=== PATIENT | female | born 1950 | race African-American/Black ===

== ENCOUNTER 2020-03-19 22:02 | Emergency (ER) | payer MEDICARE, MEDICAID ==
[~2020-03-19] VITALS: Ht 170.2 cm; Wt 127.0 kg
[2020-03-19] MEDS ORDERED: Morphine Sulfate 4mg/ml Inj (IV USE ONLY) IVP ONE (22:15)
--- NOTE | 2020-03-19 22:20 | NUR ---
ED Nurse Note: Recieved pt KENYETTA from [facility] with c/o SOB, pt has hx of COPD on O2, pt arrived with NRB mask and o2 sat=96%, was informed sat low at 87 when arrived, pt is awake and alert, oriented to name and place only, pt has periods of confusion asking where is she, sob noted at rest, pt immediately placed on monitoring, IV lines placed and labs drawn also, pt c/o having opain to left lower ext where dressing is, pt also c/o pain in mid abdomen / upper chest, pt is moaning and grasping site, rates pain at 8, MD informed immediately, will resume care as ordered and continue to closely monitor.
--- NOTE | 2020-03-19 22:30 | Emergency Room Report ---
History of Present Illness General Chief Complaint: Dyspnea/Respdistress Source: Patient, Medical Record Present Illness HPI This is a 69-year-old female from the [facility]. She has a history of COVID infection in October. She also has a history of COPD and on oxygen, diabetes, seiz ure, hypertension and CVA. He presents with chief complaint of shortness of breath and hypoxia. According to EMS, oxygenation was 87 to 91%. Patient complained of short of breath also. Also complaining of leg pain. No noted fever or chills. No cough or congestion. She is limited because of her condition. Allergies: Coded Allergies: NUHA INHIBITORS (Unverified Allergy, Unknown, 03/19/20) CEFTRIAXONE (Unverified Allergy, Unknown, 03/19/20) EZETIMIBE (Unverified Allergy, Unknown, 03/19/20) FENOFIBRATE (Unverified Allergy, Unknown, 03/19/20) MELOXICAM (Unverified Allergy, Unknown, 03/19/20) METOLAZONE (Unverified Allergy, Unknown, 03/19/20) NSAIDS (NON-STEROIDAL ANTI-INFLAMMA (Unverified Allergy, Unknown, 03/19/20) PENICILLINS (Unverified Allergy, Unknown, 03/19/20) KACBKTT-[id number]-MOV REDUCTASE INHIBITOR (Unverified Allergy, Unknown, 03/19/20) Uncoded Allergies: ENZYME INHIBITORS (Allergy, Unknown, 03/19/20) COVID-19 Screening Contact w/high risk pt: Yes Experienced COVID-19 symptoms?: No COVID-19 Testing performed CERTIFIED CODER: Yes - [facility] COVID-19 Screening: PUI COVID-19 COVID-19 Testing Source: [facility] unk time Patient History Past Medical History: see triage record, old chart reviewed, DM, HTN, COPD Past Surgical History: other Pertinent Family History: none Social History: Denies: smoking Now: No Immunizations: other Reviewed Nursing Documentation: PMH: Agreed; PSxH: Agreed Review of Systems Eye: Denies: eye pain, blurred vision ENT: Denies: ear pain, nose congestion, throat swelling Respiratory: Reports: cough, shortness of breath Cardiovascular: Denies: chest pain, palpitations Gastrointestinal: Denies: abdominal pain, diarrhea, nausea, vomiting Musculoskeletal: Denies: back pain, joint pain Skin: Denies: rash Neurological: Denies: headache, numbness Endocrine: Denies: increased thirst, increased urine Hematologic/Lymphatic: Denies: easy bruising All Other Systems: negative except mentioned in HPI Physical Exam Vital Signs Date Time Temp Pulse Resp B/P (MAP) Pulse Ox O2 Delivery O2 Flow Rate FiO2 03/19/20 21:59 97.9 85 18 119/69 (86) 93 Non-Rebreather Vitals with hypoxia Sp02 EP Interpretation: abnormal General Appearance: alert, mild distress, Chronically Ill Head: normocephalic, atraumatic Eyes: bilateral eye PERRL, bilateral eye EOMI ENT: hearing grossly normal, normal pharynx Neck: full range of motion, supple, no meningismus Respiratory: chest non-tender, decreased breath sounds, accessory muscle use Cardiovascular #1: regular rate, rhythm, no murmur Gastrointestinal: normal bowel sounds, non tender, no mass, no organomegaly, no bruit, non-distended Musculoskeletal: back normal, normal range of motion, tender - Diffuse tenderness Psychiatric: mood/affect normal Procedures Critical Care Time Critical Care Time critical care is mandated in this patient who presented with acute on chronic respiratory failure secondary to CHF and pneumonia. Patient require my urgent intervention to attenuate the risks of metabolic collapse which may lead to cardiovascular collapse and . Critical care time is 35 minutes excluding any reportable procedure. Critical care time included evaluation, multiple reevaluation, looking at old charts, interpreting laboratory and diagnostic data, discussing case with patient and family and consultants, and charting. Medical Decision Making Diagnostic Impression: Primary Impression: Acute exacerbation of CHF (congestive heart failure) Qualified Codes: I50.9 - Heart failure, unspecified Additional Impressions: HCAP (healthcare-associated pneumonia) Respiratory failure with hypoxia Qualified Codes: J96.21 - Acute and chronic respiratory failure with hypoxia UTI (urinary tract infection) Qualified Codes: N30.00 - Acute cystitis without hematuria ACS (acute coronary syndrome) ER Course This patient presents with acute on chronic respiratory failure. This may be a combination of CHF and pneumonia. I held off on giving patient fluids because of her CHF. COVID is negative. Patient received aspirin and Lovenox here because of intermediate troponin. This may be troponin leak secondary to CHF. No evidence of ST elevation [place]. I discussed the case with Dr. Marsh, [facility]. He accepted patient for transfer. Case #[id number]. EKG Diagnostic Results Rate: normal Rhythm: NSR ST Segments: other - NSST changes ASA given to the pt in ED: Yes Rhythm Strip Diag. Results EP Interpretation: yes Rate: 84 Rhythm: NSR, no PVC's, no ectopy Chest X-Ray Diagnostic Results Chest X-Ray Diagnostic Results : Chest X-Ray Ordered: Yes # of Views/Limited/Complete: 1 View Indication: Shortness of Breath EP Interpretation: Yes Interpretation: no pneumothorax, other - Cardiomegaly, CHF, left pleural effusion versus infiltrate. Impression: Other - Left pleural effusion versus infiltrate Electronically Signed by: Tim De Luna MD Last Vital Signs Date Time Temp Pulse Resp B/P (MAP) Pulse Ox O2 Delivery O2 Flow Rate FiO2 03/19/20 21:59 97.9 85 18 119/69 (86) 93 Non-Rebreather Status: improved Disposition: SHORT-TERM HOSP Condition: Stable Tim De Luna MD Mar 19, 2020 22:30
[2020-03-19] MEDS ORDERED: ACETAMINOPHEN500 M5 ORAL (22:36)
[2020-03-19] MEDS ORDERED: CHOLECALCIFEROL1 G1 MC (22:37)
[2020-03-19] MEDS ORDERED: COMBIVENT RESPIM4 GM IH (22:38)
[2020-03-19] MEDS ORDERED: NEURONTIN300 MG ORAL (22:40)
[2020-03-19] MEDS ORDERED: FLORASTOR250 MG ORAL (22:40)
[2020-03-19] MEDS ORDERED: GUAIFENESI100 MG/5 M ORAL (22:41)
[2020-03-19] MEDS ORDERED: VISTARIL25 MG ORAL (22:42)
[2020-03-19] MEDS ORDERED: LEVETIRACETAM500 MG ORAL (22:43)
[2020-03-19] MEDS ORDERED: LIDODERM700 M1 TOPIC (22:44)
[2020-03-19] MEDS ORDERED: LOSARTAN POTASS50 MG ORAL (22:45)
[2020-03-19] MEDS ORDERED: Aztreonam Inj 1 GM in NS 55 ML IVPB ONE (22:45)
[2020-03-19] MEDS ORDERED: MELATONIN 3 MG1 EAC1 PO (22:46)
[2020-03-19] MEDS ORDERED: MIRALAX17 G2 ORAL (22:47)
[2020-03-19] MEDS ORDERED: MULTIVITAMINS1 EAC2 ORAL (22:48)
[2020-03-19] MEDS ORDERED: NORCO 10-325 T1 EACH ORAL (22:48)
[2020-03-19] MEDS ORDERED: NYSTATIN15 GM TOPIC (22:49)
--- NOTE | 2020-03-19 22:49 | Diagnostic Imaging Report ---
EXAM: XR Chest, 1 View CLINICAL HISTORY: SOB TECHNIQUE: Frontal view of the chest. COMPARISON: No previous studies. FINDINGS: Lungs: Prominence of central pulmonary vasculature. Pleural space: Moderate left pleural effusion appeared No pneumothorax. Heart: There is cardiomegaly. Mediastinum: Unremarkable. Bones/joints: Osteopenia. Other findings: The patient is slightly rotated right of midline. IMPRESSION: 1. Cardiomegaly. 2. Prominence of central pulmonary vascular. 3. Moderate left pleural effusion. 4. This constellation of findings is most compatible with congestive heart failure. 5. Clinical correlation is advised.
[2020-03-19] MEDS ORDERED: CRESTOR10 M2 ORAL (22:50)
[2020-03-19] MEDS ORDERED: SIMETHICONE80 MG ORAL (22:51)
[2020-03-19] MEDS ORDERED: TOPIRAMATE100 MG ORAL (22:51)
[2020-03-19] MEDS ORDERED: VITAMIN A & D454 GM TOP (22:53)
[2020-03-19 22:57] LABS: ANION GAP -1 mmol/L (5-15); BLOOD UREA NITROGEN 12 mg/dL (7-18); CALCIUM 9.1 MG/DL (8.5-10.1); CARBON DIOXIDE 36 MMOL/L (21-32); CHLORIDE 100 MMOL/L (98-107); CREATININE 0.6 MG/DL (0.55-1.30); SODIUM 135 MMOL/L (136-145)
[2020-03-19 23:00] VITALS: BP 129/76
[2020-03-19 23:13] LABS: ALANINE AMINOTRANSFERASE 9 U/L (12-78); ALBUMIN 2.7 G/DL (3.4-5.0); ALBUMIN/GLOBULIN RATIO 0.7 (1.0-2.7); ALKALINE PHOSPHATASE 72 U/L (46-116); ASPARTATE AMINO TRANSFERASE 21 U/L (15-37); BILIRUBIN,TOTAL 0.4 MG/DL (0.2-1.0); CREATINE KINASE 21 U/L (26-308); FERRITIN 149 NG/ML (8-388); LACTATE DEHYDROGENASE 243 U/L (81-234)
[2020-03-19 23:16] LABS: BASOPHILS % (AUTO) 0.8 % (0.0-2.0); EOSINOPHILS % (AUTO) 1.4 % (0.0-3.0); HEMATOCRIT 52.1 % (37.0-47.0); HEMOGLOBIN 14.7 G/DL (12.0-16.0); LYMPHOCYTES % (AUTO) 22.1 % (20.0-45.0); MEAN CORPUSCULAR VOLUME 94 FL (80-99); MONOCYTES % (AUTO) 7.9 % (1.0-10.0); NEUTROPHILS % (AUTO) 67.9 % (45.0-75.0); PLATELET COUNT 189 K/UL (150-450); RED BLOOD COUNT 5.56 M/UL (4.20-5.40); RED CELL DISTRIBUTION WIDTH 15.8 % (11.6-14.8); WHITE BLOOD COUNT 6.9 K/UL (4.8-10.8)
--- NOTE | 2020-03-19 23:35 | NUR ---
ED Nurse Note: Repeat troponin level drawn and sent, pt medicated as ordered, tolerating meds well, no s/s of adverse reaction noted, pt continues to have intermittent periods of c/o mid chest pain, pt medicated as ordered, remains on cardiac monitoring, assisted with repositioning, pt is morbid obese, pillows used for support, pt ahs severe constant tremor and shaking.
[2020-03-19] MEDS ORDERED: Aspirin Baby 81mg ORAL ONE (23:45)
[2020-03-19] MEDS ORDERED: Enoxaparin 120 mg inj SUBQ ONE (23:45)
[2020-03-19 23:57] LABS: APPEARANCE,URINE VERY CLOUDY; BILIRUBIN, URINE NEGATIVE (NEGATIVE); GLUCOSE, URINE (UA) NEGATIVE (NEGATIVE); KETONES,URINE NEGATIVE (NEGATIVE); LEUKOCYTE ESTERASE ,URINE 3+ (NEGATIVE); NITRITE,URINE POSITIVE (NEGATIVE); PH,URINE 6.5 (4.5-8.0); PROTEIN,URINE 2+ (NEGATIVE); UROBILINOGEN,URINE NORMAL MG/DL (0.0-1.0)
[2020-03-20] VITALS: BP 147/89
[2020-03-20 00:01] LABS: COLOR,URINE YELLOW
--- NOTE | 2020-03-20 00:39 | NUR ---
Scott ESPAÑA called back,speaking with .
[2020-03-20] MEDS ORDERED: Enoxaparin 60mg Inj SUBQ ONE (00:56)
[2020-03-20] MEDS ORDERED: Morphine Sulfate 4mg/ml Inj (IV USE ONLY) ONE (00:57)
[2020-03-20] MEDS ORDERED: Morphine Sulfate 4mg/ml Inj (IV USE ONLY) IVP ONE (01:15)
--- NOTE | 2020-03-20 01:56 | NUR ---
RT notified to do ABG @1103
[2020-03-20 02:00] VITALS: BP 123/96
--- NOTE | 2020-03-20 02:10 | NUR ---
ED Nurse Note: Pt medicated for pain, meds effective, pt states she feels better, resting quietly, oxygen changed to nasal cannula, sat=96%, tolerating well, ABG done, carvajal to gravity, lasix given effective, pt with output noted, pt repositioned and turned with pillows support, pt is to be transferred to [facility], waiting for transfer info, will continue to closely montior, no s/s of adverse reaction noted from IV antibiotics given also.
--- NOTE | 2020-03-20 02:56 | NUR ---
[facility] us [facility].
[2020-03-20 03:30] VITALS: BP 104/60
--- NOTE | 2020-03-20 03:45 | NUR ---
ED Nurse Note: Pt continues to rest quietly in bed, on cardiac monitoring, pt has been taken off NRB mask and on O2 3L n/c and tolerating well with sat of 99%, pt medicated for pain, meds effective, v/s stable, pt repositioned and turned, carvajal to gravity, urine output great after lasix, pt waiting for transfer info, will continue to monitor while waiting for information.
[2020-03-20 05:15] VITALS: BP 110/51
--- NOTE | 2020-03-20 06:01 | NUR ---
Spoke with Verito-patients sister-informed of patient being transferred to [facility], gave her phone number to call as well as room number at [place].
--- NOTE | 2020-03-20 06:13 | NUR ---
ED Nurse Note: Placed call to [facility] at [phone], report given to ASHLEE Chow, pt has ambulance ETA of 0700, pt family aware of transfer, pt also, pt continues to rest quietly on monitoring, IV site intact and patent, v/s stable, no sob or labored breathing noted, will continue to closely montior while waiting for transport.
[2020-03-20 07:00] VITALS: BP 101/50
--- NOTE | 2020-03-20 07:20 | NUR ---
HAND-OFF: Report given to Sonja Thacker RN.
[2020-03-20 07:55] VITALS: BP 116/52
--- NOTE | 2020-03-20 07:55 | NUR ---
ED Nurse Note: Pt was picked up by [facility] on stable condition; report was given to ASHLEE Chow from [place] by ASHLEE Casillas. All belongings was sent with pt, family was informed of transfer.
--- NOTE | 2020-03-21 14:44 | Cardiology Report ---
APPROVED REPORT EKG Measurement Heart [id number] <Conclusion> Normal sinus rhythm Possible Left atrial enlargement Right axis deviation ST & T wave abnormality, consider anterior ischemia Abnormal ECG
--- NOTE | 2020-03-24 04:55 | Emergency Room Report ---
Physical Exam Vital Signs Date Time Temp Pulse Resp B/P (MAP) Pulse Ox O2 Delivery O2 Flow Rate FiO2 03/20/20 07:00 98.4 90 14 101/50 100 Non-Rebreather 15.0 Medical Decision Making Diagnostic Impression: Primary Impression: Acute exacerbation of CHF (congestive heart failure) Qualified Codes: I50.9 - Heart failure, unspecified Additional Impressions: Respiratory failure with hypoxia Qualified Codes: J96.21 - Acute and chronic respiratory failure with hypoxia HCAP (healthcare-associated pneumonia) ACS (acute coronary syndrome) UTI (urinary tract infection) Qualified Codes: N30.00 - Acute cystitis without hematuria ER Course Urine culture preliminary report showed Proteus mirabilis. It was resistant to everything in the susceptibility report aside from Zosyn. Patient was transferred to [place]. We spoke with him May the nurse from [place] who stated that the patient was on antibiotic treatment but was discharged earlier today as she improved clinically. Last Vital Signs Date Time Temp Pulse Resp B/P (MAP) Pulse Ox O2 Delivery O2 Flow Rate FiO2 03/20/20 07:55 98.4 96 16 116/52 100 Non-Rebreather 15.0 Disposition: SHORT-TERM HOSP Condition: Stable Referrals: NON PHYSICIAN (PCP) Aureliano Gonzalez M.D. Mar 24, 2020 04:55
== END 2020-03-20 07:55 | disposition short-term general hospital (02) ==
LOC: EDBD 22:02 → EMR 22:34
DX: I50.9 Heart failure, unspecified (principal); J96.21 Acute and chronic respiratory failure with hypoxia; J18.9 Pneumonia, unspecified organism; Y95 Nosocomial condition; N30.00 Acute cystitis without hematuria; I24.9 Acute ischemic heart disease, unspecified; E11.9 Type 2 diabetes mellitus without complications; I10 Essential (primary) hypertension; Z88.6 Allergy status to analgesic agent; Z88.0 Allergy status to penicillin; Z88.8 Allergy status to other drugs, medicaments and biological substances; Z86.19 Personal history of other infectious and parasitic diseases; Z79.899 Other long term (current) drug therapy
CPT/HCPCS: 36415; 71045; 80053; 81003; 82550; 82553; 82728; 82803; 83605; 83615; 83690; 83880; 84484; 85025; 85379; 85610; 85730; 86140; 87040; 87086; 87181; 93005; 96365; 96367; 96375; 96376; 99291; J1650; J1940; J1956; J2270; U0002